=== PATIENT | male | born 1950 | race Caucasian/White ===

== ENCOUNTER → 2017-07-20 | Outpatient (CLI) | payer MEDICARE ==
--- NOTE | 2017-07-20 08:22 | US ---
EXAMINATION TYPE: US venous doppler duplex LE RT DATE OF EXAM: 07/20/2017 8:00 AM COMPARISON: NONE CLINICAL HISTORY: Pain in Rt Leg [id number]. Right lower leg pain and bruising following trauma SIDE PERFORMED: Right TECHNIQUE: The lower extremity deep venous system is examined utilizing real time linear array sonog debby with graded compression, doppler sonography and color-flow sonography. VESSELS IMAGED: External Iliac Vein (EIV) Common Femoral Vein Deep Femoral Vein Greater Saphenous Vein * Femoral Vein Popliteal Vein Small Saphenous Vein * Proximal Calf Veins (* superficial vessels) Grayscale, color doppler, spectral doppler imaging performed of the deep veins of the lower extremiti es. There is normal flow, compressibility, vascular waveforms. Right Leg: Appears negative for DVT, medial lower leg at patient's area of concern: 4.3 x 0.9 x 1.8 cm complex area IMPRESSION: 1. No sonographic evidence of deep venous thrombosis within the right lower extremity. 2. Elongated subcutaneous hypoechoic avascular area in the patient's region of concern most suggestiv e of an evolving hematoma in the setting of prior trauma and overlying ecchymosis measuring 4.3 x 0.9 x 1.8 cm.
== END | disposition home or self-care (01) ==
LOC: RADUSWWP 07:34
PROVIDERS: ATTEND Family Medicine
DX: R93.6 Abnormal findings on diagnostic imaging of limbs (principal); M79.604 Pain in right leg

== ENCOUNTER 2018-04-02 09:10 | Day surgery (SDC) | payer MEDICARE ==
[2018-03-28 14:30] VITALS: BMI 29.0
[~2018-04-02 09:10] MED LIST: LACTATED RINGERS 1,000 ML IV SCH
[2018-04-02 09:40] VITALS: RESP 16; TEMP 97.5
[2018-04-02] MEDS ORDERED: LIDOCAINE 1% INJ 10MG/ML (20 ML MDV) ONE (10:19)
[2018-04-02] MEDS ORDERED: PROPOFOL 10 MG/ML 20 ML VIAL IV ONE (10:19)
--- NOTE | 2018-04-02 10:52 | P.PCN ---
Date of Procedure: 04/02/18 Procedure(s) Performed: Procedure: Total colonoscopy. Preoperative diagnosis: Screening for neoplasia. Postoperative diagnosis: Exam within normal limits. Preparation: HalfLytely prep. Sedation: Was provided by anesthesia. Brief clinical history: The patient is a 68-year-old male who is scheduled for this evaluation for screening for neoplasia. His prior exam was in 2009. Procedure: With the patient on his left lateral decubitus position and after informed consent and adequate sedation, the perianal area was inspected and it did not show any fissures or fistulas. There were no masses felt on digital rectal examination. The Olympus CFH 190L video colonoscope was then inserted in the rectum in the usual fashion and advanced to the cecum. The mucosa appeared healthy. No polyps or tumors were seen or any obvious diverticular disease or other pathology. I retroflexed the endoscope in the rectum before the endoscope was withdrawn. The patient tolerated the procedure well. Plan: The patient was reassured. He will follow up with you as planned and I recommended repeat exam in 10 years.
[2018-04-02 11:15] VITALS: BP 143/81; PULSE 57
== END 2018-04-02 11:24 | disposition home or self-care (01) ==
LOC: ORWHC2ENDO 09:10
DX: Z12.11 Encounter for screening for malignant neoplasm of colon (principal); K21.9 Gastro-esophageal reflux disease without esophagitis; F39 Unspecified mood [affective] disorder; Z79.899 Other long term (current) drug therapy
CPT/HCPCS: J2001; J2704; G0121

== ENCOUNTER → 2020-11-22 | Outpatient (CLI) | payer MEDICARE ==
--- NOTE | 2020-11-22 11:31 | XR ---
EXAMINATION TYPE: XR foot complete LT DATE OF EXAM: 11/22/2020 COMPARISON: NONE HISTORY: Pain TECHNIQUE: Three views are submitted. FINDINGS: The osseous structures are intact. There is no acute fracture or dislocation. Joint spaces are p reserved. Soft tissue edema fullness overlying the lateral margin of the MTP joint. IMPRESSION: 1. No acute fracture or dislocation. If symptoms persist, follow-up exam in 7 to 10 days could be ob tained.
== END | disposition home or self-care (01) ==
LOC: RADXRYALE 10:57
PROVIDERS: ATTEND Physician Assistant Medical
DX: M79.672 Pain in left foot (principal)

== ENCOUNTER → 2022-10-27 | Outpatient (CLI) | payer MEDICARE ==
--- NOTE | 2022-10-27 14:47 | XR ---
EXAMINATION TYPE: XR shoulder complete RT DATE OF EXAM: 10/27/2022 COMPARISON: NONE HISTORY: Pain TECHNIQUE: Three views are submitted. FINDINGS: The osseous structures are intact. There is no acute fracture or dislocation. Severe AC joint arthro flaca. Subsegmental changes right lung base. IMPRESSION: 1. Severe AC joint arthropathy correlate for rotator cuff disease. 2. Subsegmental consolidation right lung base favor atelectasis over infiltrate correlate clinically.
== END | disposition home or self-care (01) ==
LOC: RADXRYALE 14:23
PROVIDERS: ATTEND Physician Assistant
DX: M19.011 Primary osteoarthritis, right shoulder (principal); J98.11 Atelectasis

== ENCOUNTER 2023-08-31 16:33 | Inpatient (IN) | payer MEDICARE ==
[2023-08-31] MEDS: ONDANSETRON 4 MG/2 ML VIAL IVP STA (17:31)
[2023-08-31] MEDS: SODIUM CHLORIDE 0.9% 1,000 ML IV STA (17:33)
[2023-08-31 17:36] LABS: Basophils % (A) 0 %; Eosinophils # (A) 0.1 k/uL (0-0.7); Eosinophils % (A) 1 %; HCT 49.3 % (39.0-53.0); HGB 16.3 gm/dL (13.0-17.5); Lymphocytes # (A) 0.6 k/uL (1.0-4.8); Lymphocytes % (A) 6 %; MCH 31.8 pg (25.0-35.0); MCHC 33.1 g/dL (31.0-37.0); MCV 96.2 fL (80.0-100.0); Mean Platelet Volume 7.9; Monocytes # (A) 0.4 k/uL (0-1.0); Monocytes % (A) 4 %; Neutrophils % (A) 89 %; Platelet Count 101 k/uL (150-450); RBC 5.12 m/uL (4.30-5.90); RDW 12.7 % (11.5-15.5); WBC 10.2 k/uL (3.8-10.6)
[2023-08-31 17:45] LABS: Partial Thromboplastin Time 24.4 sec (22.0-30.0); Prothrombin Time 11.1 sec (10.0-12.5)
[2023-08-31 17:46] LABS: ALT 27 U/L (4-49); African American GFR (CKD) >90 (>60 ml/min/1.73 sqM); Albumin 4.1 g/dL (3.5-5.0); Anion Gap 12 mmol/L; Blood Urea Nitrogen 20 mg/dL (9-20); Calcium 8.6 mg/dL (8.4-10.2); Carbon Dioxide 20 mmol/L (22-30); Chloride 103 mmol/L (98-107); Glucose 119 mg/dL (74-99); Non-African American GFR(CKD) 90 (>60 ml/min/1.73 sqM); Sodium 135 mmol/L (137-145); Total Bilirubin 1.2 mg/dL (0.2-1.3); Total Protein 6.9 g/dL (6.3-8.2)
[2023-08-31 17:49] LABS: AST 39 U/L (17-59); Alkaline Phosphatase 61 U/L (38-126); Magnesium 1.7 mg/dL (1.6-2.3); Potassium 4.3 mmol/L (3.5-5.1)
[2023-08-31 17:55] LABS: NT-Pro-B-Type Natriuretic Pept 290 pg/mL
--- NOTE | 2023-08-31 17:55 | XR ---
EXAMINATION TYPE: XR chest 2V DATE OF EXAM: 08/31/2023 COMPARISON: 09/23/2011 HISTORY: Shortness of breath TECHNIQUE: Frontal and lateral views of the chest are obtained. FINDINGS: Scattered senescent parenchymal changes noted. Hyperinflation compatible with COPD. No evidence for infiltrate. No evidence for atelectasis. Heart size is stable. Pulmonary vascular congestion without overt failure. Mediastinal structures are stable and grossly unremarkable. No evidence for hilar prominence. Degenerative changes dorsal spine. IMPRESSION: 1. No evidence for acute pulmonary disease.
[2023-08-31 18:54] LABS: Appearance,Urine Clear (Clear); Bilirubin,Urine Negative (Negative); Blood,Urine Small (Negative); Color,Urine Yellow; Glucose,Urine (UA) Negative (Negative); Ketones,Urine 2+ (Negative); Leukocyte Esterase,Urine Negative (Negative); Mucus,Urine Rare /hpf; Nitrite,Urine Negative (Negative); Protein,Urine 1+ (Negative); RBC,Urine 18 /hpf (0-5); Specific Gravity,Urine 1.027 (1.001-1.035); Urobilinogen,Urine <2.0 mg/dL (<2.0); WBC,Urine 1 /hpf (0-5)
[2023-08-31] MEDS: ACETAMINOPHEN TAB 500 MG TAB PO STA (19:53)
[2023-08-31] MEDS ORDERED: NALOXONE 0.4 MG/ML 1 ML VIAL IV PRN (20:02)
[2023-08-31] MEDS ORDERED: ONDANSETRON 4 MG/2 ML VIAL IVP PRN (20:02)
--- NOTE | 2023-08-31 20:02 | ED ---
Weakness HPI - General Chief complaint: Weakness Stated complaint: General Weakness Time Seen by Provider: 08/31/23 16:40 Source: EMS Mode of arrival: EMS Limitations: no limitations - History of Present Illness Initial comments: 73-year-old male with past medical history of GERD who presents emergency department from home. is at bedside and helps provide the history. States that the patient has had generalized weakness. Reports a headache for 4 days. Yesterday he began having nausea, vomiting and a productive cough. EMS found the patient to have a pulse ox of 89%. He normally does not have any underlying lung issues to include asthma or COPD. Patient was placed on 3 L of oxygen went up to 95%. He denies chest pain. Patient arrives with a fever. Does admit he has been around his grandson who is sick and diagnosed with influenza - Related Data Home Medications Medication Instructions Recorded Confirmed [place]-3 Fatty Acids/Fish Oil [Fish 1 cap PO DAILY 03/28/18 08/31/23 Oil 1,000 mg Softgel] Sertraline HCl [Zoloft] 150 mg PO DAILY 03/28/18 08/31/23 Aspirin EC [Ecotrin Low Dose] 81 mg PO DAILY 08/31/23 08/31/23 Cholecalciferol (Vitamin D3) 50 mcg PO DAILY 08/31/23 08/31/23 [Vitamin D3 (50 Mcg = 2000 Iu)] Levothyroxine Sodium [Synthroid] 50 mcg PO DAILY 08/31/23 08/31/23 Allergies Allergy/AdvReac Type Severity Reaction Status Date / Time No Known Allergies Allergy Verified 08/31/23 18:36 Review of Systems ROS Statement: Those systems with pertinent positive or pertinent negative responses have been documented in the HPI. ROS Other: All systems not noted in ROS Statement are negative. Past Medical History Past Medical History: GERD/Reflux Additional Past Medical History / Comment(s): hx of recent weight loss and diarrhea, epidural shots to back History of Any Multi-Drug Resistant Organisms: None Reported Additional Past Surgical History / Comment(s): vasectomy, colonoscopy Past Anesthesia/Blood Transfusion Reactions: No Reported Reaction Past Psychological History: Depression Smoking Status: Never smoker Past Alcohol Use History: Occasional Past Drug Use History: None Reported - Past Family History Mother Family Medical History: Cancer Additional Family Medical History / Comment(s): kidney General Exam Limitations: no limitations General appearance: alert, in no apparent distress Head exam: Present: atraumatic, normocephalic, normal inspection Eye exam: Present: normal appearance, PERRL, EOMI. Absent: scleral icterus, conjunctival injection, periorbital swelling ENT exam: Present: normal exam, mucous membranes moist Neck exam: Present: normal inspection. Absent: tenderness, meningismus, lymphadenopathy Respiratory exam: Present: normal lung sounds bilaterally. Absent: respiratory distress, wheezes, rales, rhonchi, stridor Cardiovascular Exam: Present: regular rate, normal rhythm, normal heart sounds. Absent: systolic murmur, diastolic murmur, rubs, gallop, clicks GI/Abdominal exam: Present: soft, normal bowel sounds. Absent: distended, tenderness, guarding, rebound, rigid Extremities exam: Present: normal inspection, full ROM, normal capillary refill. Absent: tenderness, pedal edema, joint swelling, calf tenderness Back exam: Present: normal inspection Neurological exam: Present: alert, oriented X3, CN II-XII intact Psychiatric exam: Present: normal affect, normal mood Skin exam: Present: warm, dry, intact, normal color. Absent: rash Course Vital Signs 08/31/23 08/31/23 08/31/23 16:35 18:31 20:00 Temperature 98.1 F 100.3 F H 100.1 F H Pulse Rate 85 86 Respiratory 22 18 Rate Blood Pressure 156/91 173/79 O2 Sat by Pulse 90 L 96 96 Oximetry 08/31/23 20:41 Temperature 99.8 F H Pulse Rate 89 Respiratory 24 Rate Blood Pressure 170/72 O2 Sat by Pulse 94 L Oximetry Medical Decision Making - Medical Decision Making Was pt. sent in by a medical professional or institution (, PA, C[employer], urgent care, hospital, or detention...) When possible be specific @ -No Did you speak to anyone other than the patient for history (EMS, parent, family, police, friend...)? What history was obtained from this source @ -Spoke with and EMS Did you review nursing and triage notes (agree or disagree)? Why? @ -I reviewed and agree with nursing and triage notes Were old charts reviewed (outside hosp., previous admission, EMS record, old EKG, old radiological studies, urgent care reports/EKG's, detention records)? Report findings @ -No old charts were reviewed Differential Diagnosis (chest pain, altered mental status, abdominal pain women, abdominal pain men, vaginal bleeding, weakness, fever, dyspnea, syncope, headache, dizziness, GI bleed, back pain, seizure, CVA, palpatations, mental health, musculoskeletal)? @ -Differential Fever: Pneumonia, viral URI, endocarditis, myocarditis, pericarditis, otitis, sinusitis, peritonsillar Abscess, retropharyngeal Abscess, epiglottitis, peritonitis, appendicitis, Lora cystitis, diverticulitis, hepatitis, colitis, UTI, PID, TOA, pyelonephritis, prostatitis, epididymitis, meningitis, encephalitis, pulmonary embolism, CVA, thyroid storm, pancreatitis, adrenal crisis, cavernous sinus thrombosis, this is not meant to be an all-inclusive list. EKG interpreted by me (3pts min.). @ -Yes and demonstrates sinus rhythm with a rate of 84. MO interval 159. QRS 92. QTc of 418. Q waves in the inferior leads. No acute ST segment elevation X-rays interpreted by me (1pt min.). @ -Yes and demonstrates no acute process CT interpreted by me (1pt min.). @ -None done U/S interpreted by me (1pt. min.). @ -None done What testing was considered but not performed or refused? (CT, X-rays, U/S, labs)? Why? @ -None What meds were considered but not given or refused? Why? @ -None Did you discuss the management of the patient with other professionals (professionals i.e. , PA, C[employer], lab, RT, psych nurse, socially responsible investment adviser, remote sensing program manager, teacher, chief compliance officer, vocational case manager)? Give summary @ -Spoke with Dr. ahumada who will admit the patient Was smoking cessation discussed for >3mins.? @ -No Was critical care preformed (if so, how long)? @ -No Were there social determinants of health that impacted care today? How? (Homel essness, low income, unemployed, alcoholism, drug addiction, transportation, low edu. Level, literacy, decrease access to med. care, prison, rehab)? @ -No Was there de-escalation of care discussed even if they declined (Discuss DNR or withdrawal of care, Hospice)? DNR status @ -No What co-morbidities impacted this encounter? (DM, HTN, Smoking, COPD, CAD, Cancer, CVA, ARF, Chemo, Hep., AIDS, mental health diagnosis, sleep apnea, morbid obesity)? @ -None Was patient admitted / discharged? Hospital course, mention meds given and route, prescriptions, significant lab abnormalities, going to OR and other pertinent info. @ -Upon arrival patient was placed in room 4. Thorough history and physical exam was performed. Patient was given Tylenol for fever control and initiated on IV fluids. Laboratory studies were conducted. Patient does test positive for influenza A. He was started on Tamiflu. Recommended admission due to his hypoxia. Patient was agreeable to this. Spoke with Dr. Ahumada for admission Undiagnosed new problem with uncertain prognosis? @ -No Drug Therapy requiring intensive monitoring for toxicity (Heparin, Nitro, Insulin, Cardizem)? @ -No Were any procedures done? @ -No Diagnosis/symptom? @ -Acute pyrexia, acute hypoxic respiratory failure, influenza A Acute, or Chronic, or Acute on Chronic? @ -Acute Uncomplicated (without systemic symptoms) or Complicated (systemic symptoms)? @ -Complicated Side effects of treatment? @ -No Exacerbation, Progression, or Severe Exacerbation? @ -No Poses a threat to life or bodily function? How? (Chest pain, USA, MD, pneumonia, PE, COPD, DKA, ARF, appy, cholecystitis, CVA, Diverticulitis, Homicidal, Suicidal, threat to staff... and all critical care pts) @ -Yes as patient is hypoxic from his influenza - Lab Data Result diagrams: 09/01/23 06:07 09/01/23 06:07 Lab Results 08/31/23 08/31/23 08/31/23 Range/Units 17:20 17:20 17:20 WBC 10.2 (3.8-10.6) k/uL RBC 5.12 (4.30-5.90) m/uL Hgb 16.3 (13.0-17.5) gm/dL Hct 49.3 (39.0-53.0) % MCV 96.2 (80.0-100.0) fL MCH 31.8 (25.0-35.0) pg MCHC 33.1 (31.0-37.0) g/dL RDW 12.7 (11.5-15.5) % Plt Count 101 L (150-450) k/uL MPV 7.9 Neutrophils % 89 % Lymphocytes % 6 % Monocytes % 4 % Eosinophils % 1 % Basophils % 0 % Neutrophils # 9.0 H (1.3-7.7) k/uL Lymphocytes # 0.6 L (1.0-4.8) k/uL Monocytes # 0.4 (0-1.0) k/uL Eosinophils # 0.1 (0-0.7) k/uL Basophils # 0.0 (0-0.2) k/uL PT 11.1 (10.0-12.5) sec INR 1.0 (<1.2) APTT 24.4 (22.0-30.0) sec Sodium 135 L (137-145) mmol/L Potassium 4.3 (3.5-5.1) mmol/L Chloride 103 (98-107) mmol/L Carbon Dioxide 20 L (22-30) mmol/L Anion Gap 12 mmol/L BUN 20 (9-20) mg/dL Creatinine 0.77 (0.66-1.25) mg/dL Est GFR (CKD-EPI)AfAm >90 (>60 ml/min/1.73 sqM) Est GFR (CKD-EPI)NonAf 90 (>60 ml/min/1.73 sqM) Glucose 119 H (74-99) mg/dL Plasma Lactic Acid Gautam (0.7-2.0) mmol/L Calcium 8.6 (8.4-10.2) mg/dL Magnesium 1.7 (1.6-2.3) mg/dL Total Bilirubin 1.2 (0.2-1.3) mg/dL AST 39 (17-59) U/L ALT 27 (4-49) U/L Alkaline Phosphatase 61 (38-126) U/L Troponin I (0.000-0.034) ng/mL NT-Pro-B Natriuret Pep 290 pg/mL Total Protein 6.9 (6.3-8.2) g/dL Albumin 4.1 (3.5-5.0) g/dL Urine Color Urine Appearance (Clear) Urine pH (5.0-8.0) Ur Specific Shiro (1.001-1.035) Urine Protein (Negative) Urine Glucose (UA) (Negative) Urine Ketones (Negative) Urine Blood (Negative) Urine Nitrite (Negative) Urine Bilirubin (Negative) Urine Urobilinogen (<2.0) mg/dL Ur Leukocyte Esterase (Negative) Urine RBC (0-5) /hpf Urine WBC (0-5) /hpf Urine Mucus (None) /hpf Influenza Type A (PCR) (Not Detectd) Influenza Type B (PCR) (Not Detectd) RSV (PCR) (Not Detectd) SARS-CoV-2 (PCR) (Not Detectd) 08/31/23 08/31/23 08/31/23 Range/Units 17:20 17:20 17:20 WBC (3.8-10.6) k/uL RBC (4.30-5.90) m/uL Hgb (13.0-17.5) gm/dL Hct (39.0-53.0) % MCV (80.0-100.0) fL MCH (25.0-35.0) pg MCHC (31.0-37.0) g/dL RDW (11.5-15.5) % Plt Count (150-450) k/uL MPV Neutrophils % % Lymphocytes % % Monocytes % % Eosinophils % % Basophils % % Neutrophils # (1.3-7.7) k/uL Lymphocytes # (1.0-4.8) k/uL Monocytes # (0-1.0) k/uL Eosinophils # (0-0.7) k/uL Basophils # (0-0.2) k/uL PT (10.0-12.5) sec INR (<1.2) APTT (22.0-30.0) sec Sodium (137-145) mmol/L Potassium (3.5-5.1) mmol/L Chloride (98-107) mmol/L Carbon Dioxide (22-30) mmol/L Anion Gap mmol/L BUN (9-20) mg/dL Creatinine (0.66-1.25) mg/dL Est GFR (CKD-EPI)AfAm (>60 ml/min/1.73 sqM) Est GFR (CKD-EPI)NonAf (>60 ml/min/1.73 sqM) Glucose (74-99) mg/dL Plasma Lactic Acid Gautam 1.0 (0.7-2.0) mmol/L Calcium (8.4-10.2) mg/dL Magnesium (1.6-2.3) mg/dL Total Bilirubin (0.2-1.3) mg/dL AST (17-59) U/L ALT (4-49) U/L Alkaline Phosphatase (38-126) U/L Troponin I 0.019 (0.000-0.034) ng/mL NT-Pro-B Natriuret Pep pg/mL Total Protein (6.3-8.2) g/dL Albumin (3.5-5.0) g/dL Urine Color Yellow Urine Appearance Clear (Clear) Urine pH 5.0 (5.0-8.0) Ur Specific Shiro 1.027 (1.001-1.035) Urine Protein 1+ H (Negative) Urine Glucose (UA) Negative (Negative) Urine Ketones 2+ H (Negative) Urine Blood Small H (Negative) Urine Nitrite Negative (Negative) Urine Bilirubin Negative (Negative) Urine Urobilinogen <2.0 (<2.0) mg/dL Ur Leukocyte Esterase Negative (Negative) Urine RBC 18 H (0-5) /hpf Urine WBC 1 (0-5) /hpf Urine Mucus Rare H (None) /hpf Influenza Type A (PCR) (Not Detectd) Influenza Type B (PCR) (Not Detectd) RSV (PCR) (Not Detectd) SARS-CoV-2 (PCR) (Not Detectd) 08/31/23 Range/Units 17:20 WBC (3.8-10.6) k/uL RBC (4.30-5.90) m/uL Hgb (13.0-17.5) gm/dL Hct (39.0-53.0) % MCV (80.0-100.0) fL MCH (25.0-35.0) pg MCHC (31.0-37.0) g/dL RDW (11.5-15.5) % Plt Count (150-450) k/uL MPV Neutrophils % % Lymphocytes % % Monocytes % % Eosinophils % % Basophils % % Neutrophils # (1.3-7.7) k/uL Lymphocytes # (1.0-4.8) k/uL Monocytes # (0-1.0) k/uL Eosinophils # (0-0.7) k/uL Basophils # (0-0.2) k/uL PT (10.0-12.5) sec INR (<1.2) APTT (22.0-30.0) sec Sodium (137-145) mmol/L Potassium (3.5-5.1) mmol/L Chloride (98-107) mmol/L Carbon Dioxide (22-30) mmol/L Anion Gap mmol/L BUN (9-20) mg/dL Creatinine (0.66-1.25) mg/dL Est GFR (CKD-EPI)AfAm (>60 ml/min/1.73 sqM) Est GFR (CKD-EPI)NonAf (>60 ml/min/1.73 sqM) Glucose (74-99) mg/dL Plasma Lactic Acid Gautam (0.7-2.0) mmol/L Calcium (8.4-10.2) mg/dL Magnesium (1.6-2.3) mg/dL Total Bilirubin (0.2-1.3) mg/dL AST (17-59) U/L ALT (4-49) U/L Alkaline Phosphatase (38-126) U/L Troponin I (0.000-0.034) ng/mL NT-Pro-B Natriuret Pep pg/mL Total Protein (6.3-8.2) g/dL Albumin (3.5-5.0) g/dL Urine Color Urine Appearance (Clear) Urine pH (5.0-8.0) Ur Specific Shiro (1.001-1.035) Urine Protein (Negative) Urine Glucose (UA) (Negative) Urine Ketones (Negative) Urine Blood (Negative) Urine Nitrite (Negative) Urine Bilirubin (Negative) Urine Urobilinogen (<2.0) mg/dL Ur Leukocyte Esterase (Negative) Urine RBC (0-5) /hpf Urine WBC (0-5) /hpf Urine Mucus (None) /hpf Influenza Type A (PCR) Detected A (Not Detectd) Influenza Type B (PCR) Not Detected (Not Detectd) RSV (PCR) Not Detected (Not Detectd) SARS-CoV-2 (PCR) Not Detected (Not Detectd) Disposition Clinical Impression: Pyrexia, Influenza A, Cephalgia, Hypoxia Disposition: ADMITTED IP TO THIS HOSP Condition: Serious Is patient prescribed a controlled substance at d/c from ED?: No Time of Disposition: 20:02 Decision to Admit Reason: Admit from EC Decision Date: 08/31/23 Decision Time: 20:02
[2023-08-31] MEDS: SODIUM CHLORIDE 0.9% 1,000 ML IV SCH (21:13)
[2023-08-31] MEDS: OSELTAMIVIR 75 MG CAP PO SCH (22:07)
--- NOTE | 2023-09-01 06:03 | P.HPIM ---
History of Present Illness H&P Date: 08/31/23 Chief Complaint: Generalized weakness 73-year-old male with history of GERD, history of blood clots on Coumadin Patient coming in for evaluation due to generalized weakness.. Patient reports positive sick contacts with his grandkids over the past few days he started having progressive weakness generalized, fevers and chills along with dry cough and shortness of breath he denies any associated sore throat nausea vomiting chest pain or other body pains. Patient denies any hemoptysis denies any GI bleeding he denies any abdominal pain diarrhea or changes in urinary habits Patient denies any cardiac history denies any history of stroke. Patient denies tobacco smoking illicit drugs or heavy alcohol In the ED he was found to be hypoxic significantly down to the mid 80s he was tested for influenza came back positive for influenza A he was admitted for further care review of systems Pertinent positives as noted in HPI. All other systems were reviewed and are n egative on exam Constitutional: No acute distress, conversant, pleasant Eyes: Anicteric sclerae, moist conjunctiva, Pupils equal round reactive to light ENMT: NC/AT Oropharynx clear, no erythema, or exudates Neck: Supple, no masses, or JVD No carotid bruits No thyromegaly Lungs: Clear to auscultation Clear to percussion Normal respiratory effort, no accessory muscle use Cardiovascular: Heart regular in rate and rhythm, No murmurs, gallops, or rubs No peripheral edema Abdominal: Soft Nontender, no guarding, rebound or rigidity Abdomen moving with respiration Normoactive bowel sounds Extremities: No digital cyanosis No clubbing Pedal pulses intact and symmetrical Radial pulses intact and symmetrical No calf tenderness Psychiatric: Alert and oriented to person, place and time Appropriate affect fair judgement Neuro Muscles Strength 5/5 in all 4 extremities Sensation to light touch grossly present throughout Cranial nerves II-XII grossly intact Past Medical History Past Medical History: GERD/Reflux Additional Past Medical History / Comment(s): hx of recent weight loss and diarrhea, epidural shots to back History of Any Multi-Drug Resistant Organisms: None Reported Additional Past Surgical History / Comment(s): vasectomy, colonoscopy Past Anesthesia/Blood Transfusion Reactions: No Reported Reaction Past Psychological History: Depression Smoking Status: Never smoker Past Alcohol Use History: Occasional Past Drug Use History: None Reported - Past Family History Mother Family Medical History: Cancer Additional Family Medical History / Comment(s): kidney Medications and Allergies Home Medications Medication Instructions Recorded Confirmed Type [place]-3 Fatty Acids/Fish Oil [Fish 1 cap PO DAILY 03/28/18 08/31/23 History Oil 1,000 mg Softgel] Sertraline HCl [Zoloft] 150 mg PO DAILY 03/28/18 08/31/23 History Aspirin EC [Ecotrin Low Dose] 81 mg PO DAILY 08/31/23 08/31/23 History Cholecalciferol (Vitamin D3) 50 mcg PO DAILY 08/31/23 08/31/23 History [Vitamin D3 (50 Mcg = 2000 Iu)] Levothyroxine Sodium [Synthroid] 50 mcg PO DAILY 08/31/23 08/31/23 History Allergies Allergy/AdvReac Type Severity Reaction Status Date / Time No Known Allergies Allergy Verified 08/31/23 18:36 Physical Exam Vitals: Vital Signs Temp Pulse Resp BP Pulse Ox 08/31/23 18:31 100.3 F H 86 18 173/79 96 08/31/23 16:35 98.1 F 85 22 156/91 90 L Intake and Output 08/31/23 08/31/23 08/31/23 06:59 14:59 22:59 Other: Weight 92.986 kg Results CBC & Chem 7: 08/31/23 17:20 08/31/23 17:20 Labs: Abnormal Lab Results - Last 24 Hours (Table) 08/31/23 08/31/23 08/31/23 Range/Units 17:20 17:20 17:20 Plt Count 101 L (150-450) k/uL Neutrophils # 9.0 H (1.3-7.7) k/uL Lymphocytes # 0.6 L (1.0-4.8) k/uL Sodium 135 L (137-145) mmol/L Carbon Dioxide 20 L (22-30) mmol/L Glucose 119 H (74-99) mg/dL Urine Protein 1+ H (Negative) Urine Ketones 2+ H (Negative) Urine Blood Small H (Negative) Urine RBC 18 H (0-5) /hpf Urine Mucus Rare H (None) /hpf Influenza Type A (PCR) (Not Detectd) 08/31/23 Range/Units 17:20 Plt Count (150-450) k/uL Neutrophils # (1.3-7.7) k/uL Lymphocytes # (1.0-4.8) k/uL Sodium (137-145) mmol/L Carbon Dioxide (22-30) mmol/L Glucose (74-99) mg/dL Urine Protein (Negative) Urine Ketones (Negative) Urine Blood (Negative) Urine RBC (0-5) /hpf Urine Mucus (None) /hpf Influenza Type A (PCR) Detected A (Not Detectd) Assessment and Plan Assessment: 73-year-old male with venous thromboembolism, GERD coming in for generalized weakness and cough I discussed the case with ED doctor and accepted the admission for influenza infection with anticipated length of stay less than 2 m idnights Acute hypoxic respiratory failure Acute upper airway infection with influenza A Droplet precautions Tamiflu 75 mg twice daily DuoNebs as needed added scheduled Cardiac monitoring Symptomatic control of coughing fevers and chills History of venous thromboembolism Continue Coumadin dosing by pharmacy BPH Continue with Flomax Full code DVT prophylaxis Coumadin for history of venous thromboembolism Blood work showed leukocytosis with white count of 10.2, hemoglobin 16.3 unremarkable Sodium 135 potassium 4.3 BUN 20 creatinine 0.7 Urine analysis unremarkable for acute infectious process chest x-ray showed no evidence of acute cardiopulmonary process
[2023-09-01] MEDS: ACETAMINOPHEN TAB 325 MG TAB PO PRN (08:09)
[2023-09-01] MEDS: NON FORMULARY DRUG (Omega-3 Fatty Acids/Fish Oil [Fish Oil 1,000 Mg Softgel] 1 EACH Capsul PO SCH (08:44)
[2023-09-01] MEDS: ASPIRIN 81 MG PO SCH (08:48)
[2023-09-01] MEDS: IBUPROFEN 400 MG TAB PO PRN (08:48)
[2023-09-01] MEDS: LEVOTHYROXINE 50 MCG TAB PO SCH (08:48)
[2023-09-01] MEDS: CHOLECALCIFEROL 25 MCG (1000 IU) TABLET PO SCH (08:49)
[2023-09-01] MEDS: SERTRALINE 50 MG TAB PO SCH (08:49)
[2023-09-01 10:40] LABS: Basophils # (A) 0.02 X 10*3/uL (0.00-0.10); Basophils % (A) 0.2 %; Eosinophils # (A) 0.22 X 10*3/uL (0.04-0.35); Eosinophils % (A) 2.7 %; HCT 44.4 % (39.6-50.0); HGB 14.7 g/dL (13.0-17.0); Lymphocytes # (A) 1.27 X 10*3/uL (0.90-5.00); Lymphocytes % (A) 15.3 %; MCHC 33.1 g/dL (32.0-37.0); MCV 96.5 FL (80.0-97.0); Mean Platelet Volume 10.6 FL (9.5-12.2); Monocytes # (A) 0.76 X 10*3/uL (0.20-1.00); Monocytes % (A) 9.2 %; NRBC Per 100 WBC 0 X 10*3/uL (0.00-0.01); Neutrophils # (A) 5.99 X 10*3/uL (1.80-7.70); Neutrophils % (A) 72.2 %; Platelet Count 87 X 10*3/uL (140-440); RBC Morphology Normal (Normal); RDW 12.5 % (11.5-14.5); WBC 8.29 X 10*3/uL (4.50-10.00)
[2023-09-01 11:36] LABS: BUN/Creat Ratio 24.29 Ratio (12.00-20.00); Calcium 8.6 mg/dL (8.7-10.3); Carbon Dioxide 24.8 mmol/L (21.6-31.8); Chloride 108 mmol/L (96-109); Glucose 98 mg/dL (70-110); Potassium 4.2 mmol/L (3.5-5.5); Sodium 141 mmol/L (135-145)
[2023-09-01] MEDS: IPRATROPIUM-ALBUTEROL 3 ML NEB INHALATION STA (12:19)
--- NOTE | 2023-09-01 15:20 | P.PN ---
Subjective Progress Note Date: 09/01/23 No new complaints. Still dyspneic, labored. Gen: In NAD, non-toxic HEENT: normocephalic, atraumatic, hearing acuity is intant, mucous membranes moist CVS: perfusing all extremities well, no pitting edema, Respiratory: symmetric chest expansion, no accessory muscle use, diffuse wheezing GI: soft, NTTP, ND, : no suprapubic tenderness, no CVA tenderness MSK/Derm: no rashes, cyanosis Neuro: CN II-XII intact, no motor weakness, Psych: cooperative, euthymic mood, judgment and insight is intact Hospital course: 73-year-old male with history of GERD, history of blood clots on Coumadin presented for evaluation due to generalized weakness. In the ED he was found to be hypoxic significantly down to the mid 80s he was tested for influenza came back positive for influenza A he was admitted for furt her care Blood work showed leukocytosis with white count of 10.2, hemoglobin 16.3 unremarkable Sodium 135 potassium 4.3 BUN 20 creatinine 0.7 Urine analysis unremarkable for acute infectious process chest x-ray showed no evidence of acute cardiopulmonary process Assessment/plan: Acute hypoxic respiratory failure Acute upper airway infection with influenza A Droplet precautions Tamiflu 75 mg twice daily DuoNebs as needed Cardiac monitoring Symptomatic control of coughing fevers and chills History of venous thromboembolism Continue Coumadin dosing by pharmacy BPH Continue with Flomax Full code DVT prophylaxis Coumadin for history of venous thromboembolism Objective - Vital Signs Vital signs: Vital Signs Temp 98.1 F 09/01/23 07:34 Pulse 59 L 09/01/23 12:31 Resp 18 09/01/23 07:34 BP 152/76 09/01/23 07:34 Pulse Ox 93 L 09/01/23 07:34 FiO2 Intake & Output 08/31/23 09/01/23 09/01/23 18:59 06:59 18:59 Output Total 883 Balance -883 Weight 92.986 kg 92.986 kg Output: Urine 883 - Labs CBC & Chem 7: 09/01/23 06:07 09/01/23 06:07 Labs: Abnormal Lab Results - Last 24 Hours (Table) 08/31/23 08/31/23 08/31/23 Range/Units 17:20 17:20 17:20 Plt Count 101 L (150-450) k/uL Neutrophils # 9.0 H (1.3-7.7) k/uL Lymphocytes # 0.6 L (1.0-4.8) k/uL Sodium 135 L (137-145) mmol/L Carbon Dioxide 20 L (22-30) mmol/L BUN/Creatinine Ratio (12.00-20.00) Ratio Glucose 119 H (74-99) mg/dL Calcium (8.7-10.3) mg/dL Urine Protein 1+ H (Negative) Urine Ketones 2+ H (Negative) Urine Blood Small H (Negative) Urine RBC 18 H (0-5) /hpf Urine Mucus Rare H (None) /hpf Influenza Type A (PCR) (Not Detectd) 08/31/23 09/01/23 09/01/23 Range/Units 17:20 06:07 06:07 Plt Count 87 L (150-450) k/uL Neutrophils # (1.3-7.7) k/uL Lymphocytes # (1.0-4.8) k/uL Sodium (137-145) mmol/L Carbon Dioxide (22-30) mmol/L BUN/Creatinine Ratio 24.29 H (12.00-20.00) Ratio Glucose (74-99) mg/dL Calcium 8.6 L (8.7-10.3) mg/dL Urine Protein (Negative) Urine Ketones (Negative) Urine Blood (Negative) Urine RBC (0-5) /hpf Urine Mucus (None) /hpf Influenza Type A (PCR) Detected A (Not Detectd)
[2023-09-02] MEDS: IPRATROPIUM-ALBUTEROL 3 ML NEB INHALATION PRN (08:55)
--- NOTE | 2023-09-02 12:14 | P.PN ---
Subjective Progress Note Date: 09/02/23 No new complaints. Gen: In NAD, non-toxic HEENT: normocephalic, atraumatic, hearing acuity is intant, mucous membranes moist CVS: perfusing all extremities well, no pitting edema, Respiratory: symmetric chest expansion, no accessory muscle use, diffuse wheezing GI: soft, NTTP, ND, : no suprapubic tenderness, no CVA tenderness MSK/Derm: no rashes, cyanosis Neuro: CN II-XII intact, no motor weakness, Psych: cooperative, euthymic mood, judgment and insight is intact Hospital course: 73-year-old male with history of GERD, history of blood clots on Coumadin presented for evaluation due to generalized weakness. In the ED he was found to be hypoxic significantly down to the mid 80s he was tested for influenza came back positive for influenza A he was admitted for further care Blood work showed leukocytosis with white count of 10.2, hemoglobin 16.3 unremarkable Sodium 135 potassium 4.3 BUN 20 creatinine 0.7 Urine analysis unremarkable for acute infectious process chest x-ray showed no evidence of acute cardiopulmonary process Assessment/plan: Acute hypoxic respiratory failure Acute upper airway infection with influenza A Droplet precautions Tamiflu 75 mg twice daily DuoNebs as needed Cardiac monitoring Symptomatic control of coughing fevers and chills History of venous thromboembolism Continue Coumadin dosing by pharmacy BPH Continue with Flomax Full code DVT prophylaxis Coumadin for history of venous thromboembolism Objective - Vital Signs Vital signs: Vital Signs Temp 98.0 F 09/02/23 07:23 Pulse 67 09/02/23 09:06 Resp 18 09/02/23 07:23 BP 131/72 09/02/23 07:23 Pulse Ox 97 09/02/23 08:57 FiO2 Intake & Output 09/01/23 09/02/23 09/02/23 18:59 06:59 18:59 Output Total 400 Balance -400 Output: Urine 400 Other: # Voids 3 - Labs CBC & Chem 7: 09/01/23 06:07 09/01/23 06:07
[2023-09-03 08:44] VITALS: BP 157/77; PULSE 60; RESP 20; TEMP 98.5
--- NOTE | 2023-09-03 10:08 | P.DS ---
Providers Date of admission: 08/31/23 20:04 Expected date of discharge: 09/03/23 Attending physician: Mary Ahumada MD Primary care physician: Ian Avilez Hospital Course: Acute hypoxic respiratory failure Acute upper airway infection with influenza A History of venous thromboembolism BPH Gen: In NAD, non-toxic HEENT: normocephalic, atraumatic, hearing acuity is intant, mucous membranes moist CVS: perfusing all extremities well, no pitting edema, Respiratory: symmetric chest expansion, no accessory muscle use, diffuse wheezing GI: soft, NTTP, ND, : no suprapubic tenderness, no CVA tenderness MSK/Derm: no rashes, cyanosis Neuro: CN II-XII intact, no motor weakness, Psych: cooperative, euthymic mood, judgment and insight is intact Hospital course: 73-year-old male with history of GERD, history of blood clots on Coumadin presented for evaluation due to generalized weakness. In the ED he was found to be hypoxic significantly down to the mid 80s he was tested for influenza came back positive for influenza A he was admitted for further care Blood work showed leukocytosis with white count of 10.2, hemoglobin 16.3 unremarkable Sodium 135 potassium 4.3 BUN 20 creatinine 0.7 Urine analysis unremarkable for acute infectious process chest x-ray showed no evidence of acute cardiopulmonary process, but did show hyperinflation c/w COPD Pt was treated with nebulizers, tamiflu, and monitored to resolution of re spiratory failure. Pt returned to room air, and reported significantly improved dyspnea. Pt discharged home with PCP f/u. He should obtain outpatient PFT testing to r/o obstructive lung disease. Albuterol and tamiflu were prescribed on d/c. I spent 34 minutes coordinating this discharge on 09/02 Patient Condition at Discharge: Good Plan - Discharge Summary Discharge Rx Participant: No New Discharge Prescriptions: New Oseltamivir [Tamiflu] 75 mg PO BID #3 cap Acetaminophen Tab [Tylenol] 650 mg PO Q6HR PRN tab PRN Reason: Mild Pain Or Fever > 100.5 Albuterol Inhaler [Ventolin Hfa Inhaler] 1 - 2 puff INHALATION Q6H PRN #1 each PRN Reason: Dyspnea Continue Sertraline HCl [Zoloft] 150 mg PO DAILY [place]-3 Fatty Acids/Fish Oil [Fish Oil 1,000 mg Softgel] 1 cap PO DAILY Cholecalciferol (Vitamin D3) [Vitamin D3 (50 Mcg = 2000 Iu)] 50 mcg PO DAILY Levothyroxine Sodium [Synthroid] 50 mcg PO DAILY Aspirin EC [Ecotrin Low Dose] 81 mg PO DAILY Discharge Medication List [place]-3 Fatty Acids/Fish Oil [Fish Oil 1,000 mg Softgel] 1 cap PO DAILY 03/28/18 [History] Sertraline HCl [Zoloft] 150 mg PO DAILY 03/28/18 [History] Aspirin EC [Ecotrin Low Dose] 81 mg PO DAILY 08/31/23 [History] Cholecalciferol (Vitamin D3) [Vitamin D3 (50 Mcg = 2000 Iu)] 50 mcg PO DAILY 08/31/23 [History] Levothyroxine Sodium [Synthroid] 50 mcg PO DAILY 08/31/23 [History] Acetaminophen Tab [Tylenol] 650 mg PO Q6HR PRN tab 09/03/23 [Rx] Albuterol Inhaler [Ventolin Hfa Inhaler] 1 - 2 puff INHALATION Q6H PRN #1 each 09/03/23 [Rx] Oseltamivir [Tamiflu] 75 mg PO BID #3 cap 09/03/23 [Rx] Follow up Appointment(s)/Referral(s): Ian Avliez DO [Primary Care Provider] - 1-2 days Discharge Disposition: HOME SELF-CARE
== END 2023-09-03 10:54 | disposition home or self-care (01) | DRG 193 ==
LOC: EC 16:33 → 4SSUR 20:04
PROVIDERS: ADMIT Internal Medicine; ATTEND Internal Medicine
DX: J10.1 Influenza due to other identified influenza virus with other respiratory manifestations (principal); J96.01 Acute respiratory failure with hypoxia; J44.9 Chronic obstructive pulmonary disease, unspecified; K21.9 Gastro-esophageal reflux disease without esophagitis; N40.0 Benign prostatic hyperplasia without lower urinary tract symptoms; Z86.718 Personal history of other venous thrombosis and embolism; Z79.01 Long term (current) use of anticoagulants; Z79.82 Long term (current) use of aspirin; Z79.890 Hormone replacement therapy; Z79.899 Other long term (current) drug therapy; Z11.52 Encounter for screening for COVID-19; Z78.9 Other specified health status
CPT/HCPCS: 36415; 71046; 80048; 80053; 81001; 83605; 83735; 83880; 84484; 85025; 85610; 85730; 87636; 93005; 94640; 94760; 96361; 96374; 99285

== ENCOUNTER → 2023-10-15 | Outpatient (CLI) | payer MEDICARE ==
--- NOTE | 2023-10-16 08:27 | XR ---
EXAMINATION TYPE: XR ribs RT w pa chest xray DATE OF EXAM: 10/15/2023 4:06 PM CLINICAL INDICATION:Male, 73 years old with history of [id number] FALL, CHEST PAIN; [facility] COMPARISON: None TECHNIQUE: XR ribs RT w pa chest xray; Frontal and oblique views of the ribs with frontal chest radio graph. FINDINGS: The ribs have a normal appearance. No evidence of fracture. Overall, the lungs are clear. The cardiac silhouette is normal in size. The remaining osseous structures are intact. IMPRESSION: No acute osseous pathology.
== END | disposition home or self-care (01) ==
LOC: RADXRYALE 15:52
PROVIDERS: ATTEND Physician Assistant Medical
DX: R07.89 Other chest pain (principal); W01.0XXA Fall on same level from slipping, tripping and stumbling without subsequent striking against object, initial encounter

== ENCOUNTER → 2024-08-29 | Outpatient (CLI) | payer MEDICARE ==
--- NOTE | 2024-08-29 20:31 | XR ---
EXAMINATION TYPE: XR ribs LT w pa chest xray DATE OF EXAM: 08/29/2024 4:50 PM COMPARISON: None. CLINICAL INDICATION: Male, 74 years old with history of [id number] CHEST PAIN,FALL, pain TECHNIQUE: 2 view(s) obtained left RIBS. Exam supplemented with frontal chest. FINDINGS: Heart size is normal. Pulmonary vasculature is normal. Lungs are clear. No pneumothorax is evident. No displaced rib fractures identified. IMPRESSION: 1. No acute displaced left rib fractures identified. [facility], , 08/29/2024 8:28 PM
== END | disposition home or self-care (01) ==
LOC: RADXRYALE 16:18
PROVIDERS: ATTEND Physician Assistant Medical
DX: R07.89 Other chest pain (principal); W01.10XA Fall on same level from slipping, tripping and stumbling with subsequent striking against unspecified object, initial encounter

== ENCOUNTER → 2024-09-10 | Outpatient (CLI) | payer MEDICARE ==
--- NOTE | 2024-09-10 20:48 | XR ---
EXAMINATION TYPE: XR ribs LT w pa chest xray 5 views, XR thoracic spine 2 views DATE OF EXAM: 09/10/2024 5:10 PM COMPARISON: 08/29/2024 CLINICAL INDICATION: Male, 74 years old with history of [id number] PAIN, FALL; [facility], pain FINDINGS: Chest and left RIBS: Heart normal size. Aorta and pulmonary vasculature within normal limits. Eventration right hemidiaphr agm. Some strandy atelectasis at the left lung base. No consolidation or pleural effusion. There is a subtle nondisplaced fracture now demonstrated along the left anterolateral seventh rib pro bably due to resorptive changes of early healing. Thoracic spine: There is mild degenerative disc disease throughout the thoracic spine. Slightly accentuated thoracic kyphosis. Overall vertebral body heights are preserved. There is bridging right lateral endplate spon dylosis mid to lower thoracic spine. Slight levoconvex curvature. IMPRESSION: 1. Chest: Some strandy left basilar atelectasis. No acute cardiopulmonary process. 2. Left RIBS: Subtle nondisplaced left anterolateral seventh rib fracture now visualized. 3. Thoracic spine: Mild multilevel degenerative disc disease throughout. There is some bridging right lateral endplate spondylosis in the mid thoracic spine. Slight levoconvex curvature. No vertebral co mpression collapse. [facility], , 09/10/2024 8:46 PM
== END | disposition home or self-care (01) ==
LOC: RADXRYALE 16:48
PROVIDERS: ATTEND Physician Assistant Medical
DX: S22.32XA Fracture of one rib, left side, initial encounter for closed fracture (principal); M51.34 Other intervertebral disc degeneration, thoracic region; M47.814 Spondylosis without myelopathy or radiculopathy, thoracic region; W01.10XA Fall on same level from slipping, tripping and stumbling with subsequent striking against unspecified object, initial encounter; J98.11 Atelectasis
CPT/HCPCS: 72070

== ENCOUNTER 2024-09-13 18:25 | Emergency (ER) | payer MEDICARE ==
[2024-09-13 18:44] VITALS: TEMP 98
--- NOTE | 2024-09-13 19:27 | ED ---
General Adult HPI - General Chief complaint: Fall Stated complaint: Fall-Left Side Pain, SOB Time Seen by Provider: 09/13/24 18:46 Source: patient, RN notes reviewed Mode of arrival: ambulatory Limitations: no limitations - History of Present Illness Initial comments: 74-year-old male presenting to the emergency department for complaint of left- sided rib pain. Patient states that approximately 2 to 3 weeks ago he fell. 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 He states that he did hit his head at the time of the fall however denies loss of consciousness and does not blood thinners. Was evaluated after the injury where x-rays were completed that were unremarkable. Patient recently followed with his primary care provider in regards to URI symptoms were chest x-ray was completed that revealed potential for seventh rib fracture. Patient is currently on antibiotics for bronchitis. He endorses pain with inspiration and with movement of the anterior left side of his chest. - Related Data Home Medications Medication Instructions Recorded Confirmed [place]-3 Fatty Acids/Fish Oil [Fish 1 cap PO DAILY 03/28/18 08/31/23 Oil 1,000 mg Softgel] Sertraline HCl [Zoloft] 150 mg PO DAILY 03/28/18 08/31/23 Aspirin EC [Ecotrin Low Dose] 81 mg PO DAILY 08/31/23 08/31/23 Cholecalciferol (Vitamin D3) 50 mcg PO DAILY 08/31/23 08/31/23 [Vitamin D3 (50 Mcg = 2000 Iu)] Levothyroxine Sodium [Synthroid] 50 mcg PO DAILY 08/31/23 08/31/23 Previous Rx's Medication Instructions Recorded Acetaminophen Tab [Tylenol] 650 mg PO Q6HR PRN tab 09/03/23 Albuterol Inhaler [Ventolin Hfa 1 - 2 puff INHALATION Q6H PRN #1 09/03/23 Inhaler] each Oseltamivir [Tamiflu] 75 mg PO BID #3 cap 09/03/23 Lidocaine 5% Patch [Lidoderm] 1 patch TOPICAL DAILY #14 patch 09/13/24 Allergies Allergy/AdvReac Type Severity Reaction Status Date / Time No Known Allergies Allergy Verified 09/13/24 18:44 Review of Systems ROS Statement: Those systems with pertinent positive or pertinent negative responses have been documented in the HPI. ROS Other: All systems not noted in ROS Statement are negative. Past Medical History Past Medical History: GERD/Reflux Additional Past Medical History / Comment(s): hx of recent weight loss and diarrhea, epidural shots to back History of Any Multi-Drug Resistant Organisms: None Reported Additional Past Surgical History / Comment(s): vasectomy, colonoscopy Past Anesthesia/Blood Transfusion Reactions: No Reported Reaction Past Psychological History: Depression Smoking Status: Never smoker Past Alcohol Use History: Occasional Past Drug Use History: None Reported - Past Family History Mother Family Medical History: Cancer Additional Family Medical History / Comment(s): kidney General Exam Limitations: no limitations General appearance: alert, in no apparent distress Neck exam: Present: normal inspection. Absent: tenderness, meningismus, lymphadenopathy Respiratory exam: Present: normal lung sounds bilaterally, chest wall tenderness (Anterior left). Absent: respiratory distress, wheezes, rales, rhonchi, stridor Cardiovascular Exam: Present: regular rate, normal rhythm, normal heart sounds. Absent: systolic murmur, diastolic murmur, rubs, gallop, clicks GI/Abdominal exam: Present: soft, normal bowel sounds. Absent: distended, tenderness, guarding, rebound, rigid Extremities exam: Present: normal inspection, full ROM, normal capillary refill. Absent: tenderness, pedal edema, joint swelling, calf tenderness Back exam: Present: normal inspection Course Vital Signs 09/13/24 18:38 Temperature 98.0 F Pulse Rate 76 Respiratory 17 Rate Blood Pressure 138/82 O2 Sat by Pulse 97 Oximetry Medical Decision Making - Medical Decision Making Was pt. sent in by a medical professional or institution (, PA, [employer], urgent care, hospital, or half-way...) When possible be specific @ -No Did you speak to anyone other than the patient for history (EMS, parent, family, police, friend...)? What history was obtained from this source @ -No Did you review nursing and triage notes (agree or disagree)? Why? @ -I reviewed and agree with nursing and triage notes Were old charts reviewed (outside hosp., previous admission, EMS record, old EK G, old radiological studies, urgent care reports/EKG's, half-way records)? Report findings @ -No old charts were reviewed Differential Diagnosis (chest pain, altered mental status, abdominal pain women, abdominal pain men, vaginal bleeding, weakness, fever, dyspnea, syncope, headache, dizziness, GI bleed, back pain, seizure, CVA, palpatations, mental health, musculoskeletal)? @ -Differential Musculoskeletal Muscular strain, contusion, ligament sprain, fracture, arthritis, septic arthritis, bursitis, cellulitis, muscle spasm, nerve compression, DVT, arterial occlusion, herpes zoster, electrolyte abnormality, tumor.... This is not meant to be in all inclusive list EKG interpreted by me (3pts min.). @ -None X-rays interpreted by me (1pt min.). @ -None done CT interpreted by me (1pt min.). @ -CT of the chest without contrast reveals nondisplaced fractures involving the left anterior lateral sixth, seventh, eighth ribs with no acute cardiopulmonary process U/S interpreted by me (1pt. min.). @ -None done What testing was considered but not performed or refused? (CT, X-rays, U/S, labs)? Why? @ -None What meds were considered but not given or refused? Why? @ -None Did you discuss the management of the patient with other professionals (professionals i.e. , PA, [employer], lab, RT, psych nurse, social research assistant, supervisor insecticide, teacher, financial officer, case picker)? Give summary @ -No Was smoking cessation discussed for >3mins.? @ -No Was critical care preformed (if so, how long)? @ -No Were there social determinants of health that impacted care today? How? (Homelessness, low income, unemployed, alcoholism, drug addiction, transportation, low edu. Level, literacy, decrease access to med. care, detention, rehab)? @ -No Was there de-escalation of care discussed even if they declined (Discuss DNR or withdrawal of care, Hospice)? DNR status @ -No What co-morbidities impacted this encounter? (DM, HTN, Smoking, COPD, CAD, Cancer, CVA, ARF, Chemo, Hep., AIDS, mental health diagnosis, sleep apnea, morbid obesity)? @ -None Was patient admitted / discharged? Hospital course, mention meds given and route, prescriptions, significant lab abnormalities, going to OR and other pe rtinent info. @ -Discharge. 74 male presenting with left anterior chest pain/rib pain. Was offered pain medication was declined. Pain is reproducible on examination. There are no overlying skin changes. CT reveals nondisplaced fractures valving the left anterior lateral sixth, seventh, eighth ribs. Viral testing is negative. Patient is provided with incentive spirometer instructed to continue supportive treatment at home. Recommend he complete antibiotics as prescribed as primary care provider. Case discussed with Dr. Garcia Undiagnosed new problem with uncertain prognosis? @ -No Drug Therapy requiring intensive monitoring for toxicity (Heparin, Nitro, Insulin, Cardizem)? @ -No Were any procedures done? @ -No Diagnosis/symptom? @ -Rib fracture Acute, or Chronic, or Acute on Chronic? @ -Acute Uncomplicated (without systemic symptoms) or Complicated (systemic symptoms)? @ -Uncomplicated Side effects of treatment? @ -No Exacerbation, Progression, or Severe Exacerbation? @ -No Poses a threat to life or bodily function? How? (Chest pain, [place], [place], pneumonia, PE, COPD, DKA, ARF, appy, cholecystitis, CVA, Diverticulitis, Homicidal, Suicidal, threat to staff... and all critical care pts) @ -No - Lab Data Lab Results 09/13/24 Range/Units 19:20 Influenza Type A (PCR) Not Detected (Not Detectd) Influenza Type B (PCR) Not Detected (Not Detectd) RSV (PCR) Not Detected (Not Detectd) SARS-CoV-2 (PCR) Not Detected (Not Detectd) Disposition Clinical Impression: Rib fractures Disposition: HOME SELF-CARE Condition: Good Instructions (If sedation given, give patient instructions): How to Use an Incentive Spirometer (ED), Rib Fracture (ED) Additional Instructions: Please return to the Emergency Department if symptoms worsen or any other concerns. Prescriptions: Lidocaine 5% Patch [Lidoderm] 1 patch TOPICAL DAILY #14 patch Is patient prescribed a controlled substance at d/c from ED?: No Referrals: Ian Avilez DO [Primary Care Provider] - 1-2 days Time of Disposition: 20:07
--- NOTE | 2024-09-13 19:47 | CT ---
EXAMINATION TYPE: CT chest wo con DATE OF EXAM: 09/13/2024 7:35 PM COMPARISON: Previous CT study 06/11/2014. CLINICAL INDICATION: Male, 74 years old with history of fall 3 weeks ago, L rib pain; [facility], left sided rib pain following fall TECHNIQUE: Multiple axial images were obtained through the chest. Sagittal and coronal reformats were created for review. MIP was performed on a separate workstation. CT DLP: 506.1 mGycm, Automated exposure control for dose reduction was used. FINDINGS: LUNGS/ PLEURA: The lung parenchyma appears unremarkable. AIRWAY: Patent and unremarkable. HEART: Size within normal limits.Coronary artery calcifications. MEDIASTINUM: No gross evidence of adenopathy. VASCULATURE: No aortic aneurysm. MUSCULOSKELETAL: Nondisplaced fractures of the left anterolateral sixth, seventh and eighth ribs. [place] tilevel thoracic spine degenerative changes. Osseous structures appear demineralized. SOFT TISSUES/LYMPH NODES: Unremarkable. LOWER NECK: No significant findings. UPPER ABDOMEN: No significant acute findings. Nonobstructing calculus in the left kidney. IMPRESSION: 1. Nondisplaced fractures involving the left anterolateral sixth, seventh and eighth ribs. 2. No acute cardiopulmonary process. [facility], , 09/13/2024 7:45 PM
[2024-09-13 20:00] LABS: Influenza A Not Detected (Not Detectd); Influenza B Not Detected (Not Detectd); RSV Not Detected (Not Detectd)
[2024-09-13] MEDS: LIDOCAINE 4% PATCH TOPICAL ONE (20:28)
[2024-09-13 20:36] VITALS: BP 166/93; PULSE 86; RESP 16
== END 2024-09-13 20:36 | disposition home or self-care (01) ==
LOC: EC 18:25
DX: S22.32XA Fracture of one rib, left side, initial encounter for closed fracture (principal); V84.5XXA Driver of special agricultural vehicle injured in nontraffic accident, initial encounter; Y93.57 Activity, non-running track and field events
CPT/HCPCS: 71250; 87636; 99284